=== PATIENT | female | born 1990 | race Caucasian/White ===

== ENCOUNTER 2016-12-30 22:18 | Emergency (ER) | payer OTHER ==
[~2016-12-30] VITALS: Ht 162.6 cm; Wt 120.2 kg
[~2016-12-30 22:18] MED LIST: ALBU0.0912 INH; PRON INH
[2016-12-30 22:26] VITALS: BP 98/58
--- NOTE | 2016-12-30 23:31 | NUR ---
PT TAKEN TO BED 7
--- NOTE | 2016-12-30 23:34 | NUR ---
Dr. Moore evaluating patient at bedside.
--- NOTE | 2016-12-30 23:35 | NUR ---
SOB,ASTHMA ATTACK FOR 2 DAYS. ERMD MADE AWARE
[2016-12-30] MEDS ORDERED: methylPREDNISolone SS 125 MG in WATER STERILE 2 ML IM ONE (23:40)
[2016-12-30] MEDS ORDERED: ALBUTEROL SULFATE/IPRATROPIU 3 ML SOL IH ONE ×2 (23:40→23:50)
[2016-12-31 00:52] VITALS: BP 109/72
--- NOTE | 2016-12-31 00:52 | NUR ---
Patient discharged with v/s stable. Written and verbal after care instructions given and explained. Patient alert, oriented and verbalized understanding of instructions. Ambulatory with steady gait. All questions addressed prior to discharge. ID band removed. Patient advised to follow up with PMD. Rx of ALBUTEROL 90MCG/ ACTUATION INHALATION AEROSOL 1 - 2 PUFFS 4 TIMES A DAY NEEDED, PREDNISONE 50MG TABLET 1 TAB DAILY X 5 given. Patient educated on indication of medication including possible reaction and side effects. Opportunity to ask questions provided and answered.
== END 2016-12-31 00:52 | disposition home or self-care (01) ==
LOC: MED 22:18
DX: J45.901 Unspecified asthma with (acute) exacerbation (principal); Z88.6 Allergy status to analgesic agent
CPT/HCPCS: 71010; 94640; 96372; 99283; J2930; J7620; Q0092

== ENCOUNTER 2016-12-31 08:18 | Emergency (ER) | payer SELFPAY ==
[~2016-12-31] VITALS: Ht 162.6 cm; Wt 120.2 kg
[2016-12-31 08:20] VITALS: BP 110/63
--- NOTE | 2016-12-31 08:20 | NUR ---
PATIENT PRESENTS TO ED WITH C/O OF SOB . PT STATES SHE WAS SEEN YESTERDAY WITH AND WAS SENT HOME WITH DISCHARGE PRESCRIPTIONS . DENIES N/V/D; SKIN IS PINK/WARM/DRY; AAOX4 WITH EVEN AND STEADY GAIT; LUNGS CLEAR BL; HR EVEN AND REGULAR; PT DENIES ANY FEVER, CP OR COUGH AT THIS TIME; PATIENT STATES PAIN OF 0/10 AT THIS TIME; VSS; PATIENT POSITIONED FOR COMFORT; HOB ELEVATED; BEDRAILS UP X2; BED DOWN. ER MD MADE AWARE OF PT STATUS.
--- NOTE | 2016-12-31 08:26 | NUR ---
Patient ambulated to bed 6.
[2016-12-31] MEDS ORDERED: ALBUTEROL 0.083% 2.5 MG/3 ML NEBU INH ONE ×2 (08:30→09:20)
[2016-12-31] MEDS ORDERED: ALBUTEROL SULFATE/IPRATROPIU 3 ML SOL IH ONE ×2 (08:30→09:20)
[2016-12-31 09:57] VITALS: BP 114/70
== END 2016-12-31 09:59 | disposition home or self-care (01) ==
LOC: MED 08:18
DX: J45.901 Unspecified asthma with (acute) exacerbation (principal); Z90.49 Acquired absence of other specified parts of digestive tract; Z88.6 Allergy status to analgesic agent
CPT/HCPCS: 94640; 99284; J7613; J7620

== ENCOUNTER 2021-05-11 12:45 | Emergency (ER) | payer OTHER, SELFPAY ==
[~2021-05-11] VITALS: Ht 162.6 cm; Wt 69.9 kg
[2021-05-11 13:04] VITALS: BP 91/53
--- NOTE | 2021-05-11 15:34 | NUR ---
SCAR SWAB DONE. WALKED TO LAB
[2021-05-11] MEDS ORDERED: PROM118S5 PO (16:11)
[2021-05-11] MEDS ORDERED: IBUP-2213 PO (16:11)
[2021-05-11] MEDS ORDERED: PRED20TA5 PO (16:11)
[2021-05-11 16:21] VITALS: BP 91/53
--- NOTE | 2021-05-11 16:29 | NUR ---
Patient discharged with v/s stable. Written and verbal after care instructions given and explained. Patient alert, oriented and verbalized understanding of instructions. Ambulatory with steady gait. All questions addressed prior to discharge. ID band removed. Patient advised to follow up with PMD. Rx of IBUPROFEN, PREDNISONE, PROMETHAZINE-DMSYRUP given. Patient educated on indication of medication including possible reaction and side effects. Opportunity to ask questions provided and answered.
== END 2021-05-11 16:29 | disposition home or self-care (01) ==
LOC: MED 12:45
DX: J06.9 Acute upper respiratory infection, unspecified (principal); Z20.822 Contact with and (suspected) exposure to COVID-19; J45.909 Unspecified asthma, uncomplicated; Z88.6 Allergy status to analgesic agent; Z79.899 Other long term (current) drug therapy
CPT/HCPCS: 99283

== ENCOUNTER 2022-05-04 19:20 | Emergency (ER) | payer OTHER ==
[~2022-05-04] VITALS: Ht 162.6 cm; Wt 70.8 kg
[~2022-05-04 19:20] MED LIST changes: +IBUP-2213 PO; +PRED20TA5 PO; +PROM118S5 PO
[2022-05-04 19:50] VITALS: BP 127/83
[2022-05-04] MEDS ORDERED: AMOX-999 PO (20:27)
[2022-05-04] MEDS ORDERED: ACET-8386 PO (20:27)
--- NOTE | 2022-05-04 20:43 | NUR ---
Patient discharged with v/s stable. Written and verbal after care instructions given and explained. Patient alert, oriented and verbalized understanding of instructions. Ambulatory with steady gait. All questions addressed prior to discharge. ID band removed. Patient advised to follow up with PMD. Rx of NORCO AND AUGMENTIN given. Patient educated on indication of medication including possible reaction and side effects. Opportunity to ask questions provided and answered.
== END 2022-05-04 20:43 | disposition home or self-care (01) ==
LOC: MED 19:20
DX: K04.7 Periapical abscess without sinus (principal); J45.909 Unspecified asthma, uncomplicated; Z90.49 Acquired absence of other specified parts of digestive tract; Z88.6 Allergy status to analgesic agent
CPT/HCPCS: 99283

== ENCOUNTER 2022-10-30 13:48 | Emergency (ER) | payer OTHER ==
[~2022-10-30] VITALS: Ht 162.6 cm; Wt 76.2 kg
[~2022-10-30 13:48] MED LIST changes: +ACET-8905 PO; +AMOX-999 PO
[2022-10-30 13:54] VITALS: BP 88/64
--- NOTE | 2022-10-30 15:21 | NUR ---
32 Y/O FEMALE BIB SELF C/O LUMP UNDER THE CHIN AND SORE THROAT X1 DAY, SLIGHT COUGH, NOTED PALPABLE, MOVEABLE LUMP ON THE UNDERSIDE OF THE CHIN, TONSILS DO NOT APPEAR INFLAMMED ALLERGY: PMH: ASTHMA, VASCULITIS,DEPRESSION RX: MIDODRINE, LYRICA, TRAZODONE, BUSPIRONE
[2022-10-30] MEDS ORDERED: PRED20TA5 PO (15:30)
[2022-10-30] MEDS ORDERED: AMOX-999 PO (15:30)
[2022-10-30] MEDS ORDERED: ACET-10509 PO (15:30)
--- NOTE | 2022-10-30 15:42 | NUR ---
Patient discharged with v/s stable. Written and verbal after care instructions ABOUT LYMPHADENOPATHY, PERSONAL HYGIENE given and explained. Patient alert, oriented and verbalized understanding of instructions. Ambulatory with steady gait. All questions addressed prior to discharge. ID band removed. Patient advised to follow up with PMD. Rx of TYLENOL, AUGMENTIN 500-125, PREDNISONE given. Patient educated on indication of medication including possible reaction and side effects. Opportunity to ask questions provided and answered.
== END 2022-10-30 15:42 | disposition home or self-care (01) ==
LOC: MED 13:48
DX: R59.1 Generalized enlarged lymph nodes (principal); K04.7 Periapical abscess without sinus; J45.909 Unspecified asthma, uncomplicated; F32.A Depression, unspecified; Z88.5 Allergy status to narcotic agent
CPT/HCPCS: 99283